=== PATIENT | female | born 1970 | race Caucasian/White ===

== ENCOUNTER → 2018-02-22 | Outpatient (CLI) | payer OTHER, MEDICARE ==
[~2018-02-22] MED LIST: ASPIR 8181 MG PO; BENADRYL25 MG PO; CALCIUM 600 +1 EAC1 PO; CEPHALEXIN 500500 M3 PO; CLONAZEPAM 0.50.5 M1 PO; DICLOFENAC SODI75 M1 PO; FLEXERIL PO; HYDROXYCHLOROQ200 M1 PO; IBUPROFEN 800800 MG PO; IMURAN 50MG TAB50 M1; MEDROLDOSEPACK PO; MOTION RELIEF25 MG PO; NAPROSYN500 MG PO; NAPROXEN DELAY500 M1 PO; NORCO 5-325 TA1 EACH PO; ONE-A-DAY WOMENS PO; PREDNISONE 20 M20 MG PO; PREDNISONE PO; PRILOSEC 20 MG20 MG PO; RABEPRAZOLE SOD20 MG PO; TRIAMCINOLONE A80 G2 TOP
--- NOTE | 2018-03-09 09:01 | SLEEP ---
[address] [address] SLEEP STUDY REPORT Name: RUPA PÉREZ Room: [facility]#: [id number] Admission: 02/22/18 Attend Phys: Dana Harrington Discharge: Date of : 70 Report #: [id number] THIS REPORT FOR: //name// CC: [place] Lima This study has been reviewed in its entirety by a board certified sleep specialist DATE OF SERVICE: 02/22/2018 REQUESTING PHYSICIAN: Dana Lima, nurse practitioner. Polysomnography was performed. Study was done for complaints of frequent awakenings. Difficulty falling back asleep. Has restless sleep with frequent awakenings. [place] sleepiness scale was 9/24. Weight 174 pounds with a BMI of 29.9. Total study time was 434 minutes. Total sleep time 326 minutes. Sleep efficiency mildly decreased to 75%. 10% of the time was spent in REM sleep. During the study, there were total of 19 apneas. Four were central and 15 were obstructive. There were 23 hypopneas. This resulted in a total apnea-hypopnea index of 7.7. However, during REM sleep, the apnea/hypopnea index was 36.2. Majority of this study time was in the lateral sleeping position. Heart rate varied from 71-97 beats per minute. No periodic limb movements were noted. Snoring was noted. Lowest observed O2 saturation was 74%. O2 saturations, however, were greater than 90% almost the entire study time. Only approximately 5 minutes were spent with O2 saturations of less than 90. Due to lack of qualifying events during the first part of the sleep study, attempted CPAP/BiPAP titration was not attempted. IMPRESSION: This study does reveal evidence of mild obstructive sleep apnea. Total apnea-hypopnea index at 7.7. However, during REM sleep, was as high as 36. RECOMMENDATIONS: 1. Consider return to the sleep lab for CPAP/BiPAP titration. 2. Achieving and maintaining ideal body [place] [address] SLEEP STUDY REPORT Name: RUPA PÉREZ Room: [facility]#: [id number] Admission: 02/22/18 Attend Phys: Dana Harrington Discharge: Date of : 70 Report #: [id number] 3. Counseled the patient on risk of driving or performing activities which require concentration until sleep complaints are addressed. <ELECTRONICALLY SIGNED> By: Marvin Justin MD 03/09/18 0901 1504 [id number] Kohli MD /nt
== END ==
LOC: M.SLEEPLAB 20:00
DX: R06.83 Snoring (principal); R03.0 Elevated blood-pressure reading, without diagnosis of hypertension

== ENCOUNTER → 2018-04-13 | Outpatient (CLI) | payer OTHER, MEDICARE ==
--- NOTE | 2018-04-13 14:38 | 2DMMODE ---
[place] [address] 2 D/M-MODE ECHOCARDIOGRAM Name: RUPA PÉREZ Room: [facility]#: [id number] Admission: 04/13/18 Attend Phys: Venkat Mclaughlin, Discharge: Date of : 70 Date of Service: 04/13/18 1438 Report #: [id number] THIS REPORT FOR: //name// APPROVED REPORT Study performed: 04/13/2018 13:57:40 EXAM: Comprehensive 2D, Doppler, and color-flow Echocardiogram Patient Location: Out-Patient Status: routine BSA: 1.82 HR: 85 bpm Other Information Study Quality: Good Indications Chest Pain Hypertension/HDD 2D Dimensions LVEF(%): 70.69 (>50%) IVSd: 10.99 (7-11mm) LVOT Diam: 20.41 (18-24mm) LVDd: 40.49 mm PWd: 9.36 (7-11mm) Ascending Ao: 27.84 (22-36mm) LVDs: 24.45 (25-40mm) Aortic Root: 24.10 mm Boyle's LVEF: 70.69 % Volumes Left Atrial Volume (Systole) LA ESV Index: 12.80 mL/m2 Aortic Valve AoV Peak Erlin.: 1.08 m/s AO Peak Gr.: 4.63 mmHg LVOT Max P.02 mmHg AO Mean Gr.: 2.64 mmHg LVOT Mean P.55 mmHg LVOT Max V: 0.87 m/s AO V2 VTI: 24.62 cm LVOT Mean V: 0.57 m/s PANCHO (VTI): 2.47 cm2 LVOT V1 VTI: 18.59 cm Mitral Valve E/A Ratio: 1.08 [place] [address] 2 D/M-MODE ECHOCARDIOGRAM Name: RUPA PÉREZ Room: [facility]#: [id number] Admission: 04/13/18 Attend Phys: Venkat Mclaughlin, Discharge: Date of : 70 Date of Service: 04/13/18 1438 Report #: [id number] MV Decel. Time: 159.54 ms MV E Max Erlin.: 0.79 m/s MV PHT: 46.27 ms MVA (PHT): 4.76 cm2 TDI E/Lateral E': 9.88 E/Medial E': 11.29 Medial E' Erlin.: 0.07 m/s Lateral E' Erlin.: 0.08 m/s Pulmonary Valve PV Peak Erlin.: 0.92 m/s PV Peak Gr.: 3.41 mmHg Tricuspid Valve TR Peak Gr.: 19.79 mmHg RVSP: 24.79 mmHg Left Ventricle The left ventricle is normal size. There is normal LV segmental wall motion. There is normal left ventricular wall thickness. Left ventricular systolic function is normal. The left ventricular ejection fraction is within the normal range. LVEF is 65-70%. The left ventricular diastolic function is normal. Right Ventricle The right ventricle is normal size. The right ventricular systolic function is normal. Atria The left atrium size is normal. The right atrium size is normal. Aortic Valve The aortic valve is normal in structure. No aortic regurgitation is present. There is no aortic valvular stenosis. Mitral Valve The mitral valve is normal in structure. Trace mitral regurgitation. No evidence of mitral valve stenosis. Tricuspid Valve The tricuspid valve is normal in structure. Mild tricuspid regurgitation. The RVSP is __24.8 mmHg. Pulmonic Valve The pulmonary valve is normal in structure. There is no pulmonic [place] [address] 2 D/M-MODE ECHOCARDIOGRAM Name: RUPA PÉREZ Room: [facility]#: [id number] Admission: 04/13/18 Attend Phys: Venkat Mclaughlin, Discharge: Date of : 70 Date of Service: 04/13/18 1438 Report #: [id number] Great Vessels The aortic root is normal in size. IVC is normal in size and collapses with >50% inspiration Pericardium There is no pericardial effusion. <Conclusion> The left ventricle is normal size. There is normal left ventricular wall thickness. Left ventricular systolic function is normal. The left ventricular ejection fraction is within the normal range. LVEF is 65-70%. The left ventricular diastolic function is normal. The right ventricle is normal size. The left atrium size is normal. The aortic valve is normal in structure. The mitral valve is normal in structure. Trace mitral regurgitation. The tricuspid valve is normal in structure. Mild tricuspid regurgitation. The RVSP is __24.8 mmHg. IVC is normal in size and collapses with >50% inspiration There is no pericardial effusion. There is normal LV segmental wall motion. <ELECTRONICALLY SIGNED> By: Ish Oconnell MD, FACC 04/13/18 1438 1438 1438 Ish Oconnell MD, FACC /INF
== END ==
LOC: M.CRD 13:41
DX: I07.1 Rheumatic tricuspid insufficiency (principal); I10 Essential (primary) hypertension

== ENCOUNTER → 2018-06-30 | Outpatient (CLI) | payer OTHER, MEDICARE ==
[2018-06-30 10:30] LABS: CALCIUM 8.8 mg/dL (8.5-10.1); CREATININE 0.9 mg/dL (0.6-1.3); MAGNESIUM 1.8 mg/dL (1.8-2.4); POTASSIUM 3.8 mmol/L (3.5-5.1)
--- NOTE | 2018-07-01 11:27 | TST ---
[place] [address] TREADMILL STRESS TEST Name: RUPA PÉREZ Room: [facility]#: [id number] Admission: 06/30/18 Attend Phys: Oly Milton, Discharge: Date of : 70 Date of Service: 06/30/18 1308 Report #: [id number] THIS REPORT FOR: //name// CC: APOLINAR James DATE OF SERVICE: 06/30/2018 Resting 12-lead electrocardiogram demonstrates sinus rhythm with right axis deviation and possible anteroseptal scar. There is a minor interventricular conduction delay and minor nonspecific ST-T alterations. The patient exercised for 9 minutes and 24 seconds of a Frank protocol, stopping because of shortness of breath and fatigue, but denying chest pain. The patient achieved a peak heart rate of 171, 120% of the age predicted maximum. Blood pressure is 121/95 initially, increasing to 167/85 during exercise. It fell to 132/85 during the post-exercise phase. There were no ischemic ST-T alterations noted. Minor nonspecific ST-T changes persisted during exercise. There were occasional isolated PVCs without complex ventricular or supraventricular arrhythmias. IMPRESSION: 1. Negative treadmill exercise test for provocation of ischemic ST-T alterations. 2. No chest pain provoked by exertion. 3. Appropriate heart rate and systolic blood pressure responses to exercise. 4. No significant arrhythmias noted; rare isolated premature ventricular contractions were observed. 5. Very good level of fitness for age. <ELECTRONICALLY SIGNED> By: Ish Oconnell MD, FACC 07/01/18 1127 1308 2332 Ish Oconnell MD, FACC /nt
== END ==
LOC: M.CRD 09:19
PROVIDERS: Nurse Practitioner
DX: I10 Essential (primary) hypertension (principal); I49.9 Cardiac arrhythmia, unspecified; I47.1 Supraventricular tachycardia; R42 Dizziness and giddiness; R55 Syncope and collapse; R07.89 Other chest pain

== ENCOUNTER 2019-12-25 20:07 | Emergency (ER) | payer OTHER, MEDICARE ==
[~2019-12-25] VITALS: Ht 162.6 cm; Wt 72.1 kg
[2019-12-25] MEDS ORDERED: OMEPRAZOLE40 MG PO (20:35)
[2019-12-25] MEDS ORDERED: DRIZALMA SPRINK20 MG PO (20:36)
[2019-12-25] MEDS ORDERED: CLONAZEPAM 0.50.5 M1 PO (20:36)
[2019-12-25] MEDS ORDERED: EMGALITY120 MG/1 M SUBQ (20:36)
[2019-12-25 21:32] LABS: ABSOLUTE BASOPHILS 0.1 thou/uL (0.0-0.2); ABSOLUTE LYMPHOCYTES 0.7 thou/uL (0.8-5.3); ABSOLUTE MONOCYTES 0.5 thou/uL (0.0-1.2); BASOPHILS 1.2 %; HEMATOCRIT 33.8 % (37.0-47.0); HEMOGLOBIN 11.2 gm/dL (12.0-15.0); LYMPHOCYTES 16.6 %; MCH 28.9 pg (26.0-34.0); MCHC 33.2 g/dL (28.0-37.0); MCV 87.1 fL (80.0-100.0); MONOCYTES 11.1 %; MPV 7.9 fl. (7.2-11.1); NUCLEATED RBCS 0 /100WBC; PLATELET COUNT* 261 thou/uL (150-400); POLYS 70.1 %; RBC 3.88 mil/uL (4.20-5.00); RDW-CV 13.7 % (10.5-14.5); WBC 4.3 thou/uL (4.0-11.0)
[2019-12-25 21:37] LABS: URINE BLOOD TRACE (Negative); URINE CLARITY CLEAR; URINE COLOR YELLOW; URINE GLUCOSE-RANDOM NEGATIVE (Negative); URINE KETONES NEGATIVE (Negative); URINE LEUKOCYTES-REFLEX NEGATIVE (Negative); URINE NITRITE-REFLEX NEGATIVE (Negative); URINE PROTEIN 1+ (Negative); URINE SPECIFIC GRAVITY >= 1.030 (1.005-1.030); URINE UROBILINOGEN 0.2 E.U./dl (0.2-1.0)
[2019-12-25 21:40] LABS: ICTOTEST (BILI CONFIRMATORY) Negative (Negative); URINE BILIRUBIN 1+ (Negative)
[2019-12-25 21:42] LABS: CALCIUM 8.7 mg/dL (8.5-10.1); POTASSIUM 3.1 mmol/L (3.5-5.1)
[2019-12-25 21:47] LABS: TOTAL BILIRUBIN 0.4 mg/dL (<0.1-1.0); TOTAL PROTEIN 8.2 g/dL (6.4-8.2)
[2019-12-25] MEDS ORDERED: HYDROCODON-ACE1 EAC8 PO (22:55)
[2019-12-25] MEDS ORDERED: ZOFRAN ODT4 MG PO (22:55)
[2019-12-25] MEDS ORDERED: FLAGYL500 M1 PO (22:55)
[2019-12-25 23:09] VITALS: BP 110/70
== END 2019-12-25 23:11 | disposition home or self-care (01) ==
LOC: M.ERS 20:07
PROVIDERS: Emergency Medicine
DX: K52.9 Noninfective gastroenteritis and colitis, unspecified (principal); R11.2 Nausea with vomiting, unspecified; Z96.641 Presence of right artificial hip joint; Z88.0 Allergy status to penicillin; Z88.1 Allergy status to other antibiotic agents